=== PATIENT | male | born 1955 | race Caucasian/White ===

== ENCOUNTER 2017-04-02 08:09 | Emergency (ER) | payer BC ==
--- NOTE | 2017-04-02 08:42 | EDM.PDOC ---
ED HPI GENERAL MEDICAL PROBLEM - General Chief Complaint: Trauma Stated Complaint: FELL, MULTIPLE INJURIES Time Seen by Provider: 04/02/17 08:32 Source of Information: Reports: Patient History Limitations: Reports: No Limitations - History of Present Illness INITIAL COMMENTS - FREE TEXT/NARRATIVE: The patient was out walking and he tripped and fell and landed on his knees and hands and he may have hit his head. He had no LOC. He has no headache at this time. He has some neck pain. He has right and left knee pain and some pain in his right hand. He has a mechanical heart valve and his on coumadin. He has a history of fall a few years ago and a head bleed. He has no chest pain, shortness of breath or abdominal pain. Onset: Sudden Duration: Hour(s): Location: Reports: Neck, Upper Extremity, Right (hand), Lower Extremity, Left ( knee), Lower Extremity, Right (knee) Quality: Reports: Sharp Severity: Moderate Improves with: Reports: None Worsens with: Reports: None Context: Reports: Trauma (Fall) Associated Symptoms: Reports: No Other Symptoms Right Hand Pain Score (Numeric/FACES): 8 Bilateral Knee Pain Score (Numeric/FACES): 7 - Related Data Allergies Allergy/AdvReac Type Severity Reaction Status Date / Time No Known Allergies Allergy Verified 04/02/17 08:16 Home Meds: Home Meds Aspirin [Halfprin] 81 mg PO DAILY 03/19/14 [History] Omeprazole 20 mg PO DAILY 03/19/14 [History] Rosuvastatin [Crestor] 5 mg PO DAILY 03/19/14 [History] Warfarin [Coumadin] 10 mg PO DAILY 03/19/14 [History] Warfarin [Coumadin] 15 mg PO ASDIRECTED 04/02/17 [History] Social & Family History - Tobacco Use Smoking Status *Q: Never Smoker - Alcohol Use Days Per Week of Alcohol Use: 0 Number of Drinks Per Day: 0 Total Drinks Per Week: 0 - Recreational Drug Use Recreational Drug Use: No Drug Use in Last 12 Months: No Review of Systems - Review of Systems Review Of Systems: See Below Constitutional: Reports: No Symptoms Eyes: Reports: No Symptoms Ears: Reports: No Symptoms Nose: Reports: No Symptoms Mouth/Throat: Reports: No Symptoms Respiratory: Reports: No Symptoms Cardiovascular: Reports: No Symptoms GI/Abdominal: Reports: No Symptoms Genitourinary: Reports: No Symptoms Musculoskeletal: Reports: Neck Pain, Other (Right and left knee pain and right hand pain.) ED EXAM, GENERAL - Physical Exam Exam: See Below Exam Limited By: No Limitations General Appearance: Alert, No Apparent Distress Ears: Normal External Exam Nose: Normal Inspection Head: Atraumatic, Normocephalic Neck: Other (mid lateral neck pain) Respiratory/Chest: No Respiratory Distress, Lungs Clear, Normal Breath Sounds Cardiovascular: Regular Rate, Rhythm, No Edema, No Murmur GI/Abdominal: Soft, Non-Tender, No Organomegaly, No Mass Back Exam: Normal Inspection Extremities: Other (Pain upon palpation with mild edema and small abrasion to both knees. Pain upon palpation to the right hand with mild edema and an abrasion) Neurological: Alert, Oriented, No Motor/Sensory Deficits Course - Vital Signs Last Recorded V/S: Last Vital Signs Temp 97.8 F 04/02/17 08:16 Pulse 69 04/02/17 08:16 Resp 16 04/02/17 08:16 BP 130/73 04/02/17 08:16 Pulse Ox 95 04/02/17 08:16 - Orders/Labs/Meds Orders: Active Orders 24 hr Category Date Time Status Vaccines to be Administered [RC] PER UNIT ROUTINE Care 04/02/17 09:01 Active Hand Comp Min 3V Rt [CR] Stat Exams 04/02/17 08:33 Taken Labs: Laboratory Tests 04/02/17 Range/Units 09:06 PT 32.5 H (8.0-13.0) SECONDS INR 2.79 Meds: Medications Discontinued Medications Generic Name Dose Route Start Last Admin Trade Name Doug PRN Reason Stop Dose Admin Diphtheria/Tetanus/Acell Pertussis 0.5 ml 04/02/17 09:01 04/02/17 09:12 Boostrix IM 04/02/17 09:02 0.5 ml .ONCE ONE Administration - Re-Assessments/Exams Free Text/Narrative Re-Assessment/Exam: 04/02/17 08:43 I will get an x-ray of his right hand and both knees, CT of his head and neck and an INR. 04/02/17 10:[address] of his head and neck shows nothing acute. His right hand looks good. He did not want his knees x-rayed. His INR was therapeutic at 2.79. Departure - Departure Time of Disposition: 10:05 Disposition: Home, Self-Care 01 Condition: good Clinical Impression: Fall Qualifiers: Encounter type: initial encounter Qualified Code(s): W19.XXXA - Unspecified fall, initial encounter Contusion of right knee Qualifiers: Encounter type: initial encounter Qualified Code(s): S80.01XA - Contusion of right knee, initial encounter Contusion of left knee Qualifiers: Encounter type: initial encounter Qualified Code(s): S80.02XA - Contusion of left knee, initial encounter Cervical strain Qualifiers: Encounter type: initial encounter Qualified Code(s): S16.1XXA - Strain of muscle, fascia and tendon at neck level, initial encounter Contusion of right hand Qualifiers: Encounter type: initial encounter Qualified Code(s): S60.221A - Contusion of right hand, initial encounter Abrasion of right ring finger Qualifiers: Encounter type: initial encounter Qualified Code(s): S60.414A - Abrasion of right ring finger, initial encounter - Discharge Information Referrals: Fide Carrera PA [Primary Care Provider] - Forms: ED Department Discharge Additional Instructions: Ice the areas that hurt a few times per day. Take tylenol or motrin for pain. Please return if you are worse. - My Orders Last 24 Hours: My Active Orders 04/02/17 08:33 Hand Comp Min 3V Rt [CR] Stat 04/02/17 09:01 Vaccines to be Administered [RC] PER UNIT ROUTINE - Assessment/Plan Last 24 Hours: My Active Orders 04/02/17 08:33 Hand Comp Min 3V Rt [CR] Stat 04/02/17 09:01 Vaccines to be Administered [RC] PER UNIT ROUTINE
[2017-04-02] MEDS ORDERED: Diphtheria,Pertussis(Acell),Tetanus Vaccine 0.5 ML SDV inactive IM ONE (09:01)
--- NOTE | 2017-04-02 09:46 | CT ---
Head CT Technique: Multiple axial sections through the brain were obtained. Intravenous contrast was not utilized. Comparison: Previous head CT exam of 04/18/15. Findings: Ventricles along with basal cisterns and sulci over the convexities are mildly prominent. No abnormal parenchymal densities are seen. No evidence of intracranial hemorrhage. No midline shift or mass effect is seen. Incidental basal ganglia calcification is seen. Bone window settings were reviewed which shows a small retention cyst within the left maxillary sinus. Minimal areas of mucosal thickening are seen within the ethmoid and right maxillary sinus. No acute calvarial abnormality is seen. Impression: 1. Minimal sinus findings which are felt to be incidental and chronic. 2. No acute intracranial abnormality is identified on noncontrast head CT study. Diagnostic code #2
--- NOTE | 2017-04-02 09:51 | CT ---
CT cervical spine Technique: Multiple axial sections of the cervical spine were obtained from above C1 inferiorly to the bottom of T1. Reconstructed sagittal and coronal images were reviewed. Comparison: Previous MRI cervical spine study of 04/25/15 is available. Findings: Mild degenerative change is noted between the dens and the anterior arch of C1. Moderate to severe disc space narrowing is noted at C5-6 and C6-7. Scattered anterior endplate osteophytes are seen. Degenerative spurring is noted within the uncovertebral joints most prominent at C5-6 on the right side. Other lesser scattered degenerative change seen within the uncovertebral joints. Vertebral body heights are maintained. Posterior skull base is intact. Scattered degenerative apophyseal change is seen. Vertebral bodies and posterior arches are intact. No fracture is seen. Minimal right sided neural foraminal stenosis noted at C6-7. Mild right-sided neural foraminal stenosis noted at C5-6. Other neural foramina are patent. No abnormal subluxation is seen. Impression: 1. Moderate diffuse degenerative change. 2. No acute fracture or abnormal subluxation is seen on CT study of the cervical spine. Diagnostic code #2
[2017-04-02 11:14] VITALS: BP 124/85
--- NOTE | 2017-04-02 12:56 | CR ---
Right hand: Four views of the right hand were obtained. Comparison: No previous hand study. Slight vascular calcification is seen within the wrist. Slight joint space narrowing is scattered within the DIP and PIP joints. No fracture, dislocation or other bony abnormality is seen. Impression: 1. Incidental findings. Nothing acute is appreciated on right hand exam. Diagnostic code #2
== END 2017-04-02 10:30 | disposition home or self-care (01) ==
LOC: JD.ED 08:09
DX: S16.1XXA Strain of muscle, fascia and tendon at neck level, initial encounter (principal); S80.01XA Contusion of right knee, initial encounter; S80.02XA Contusion of left knee, initial encounter; S60.221A Contusion of right hand, initial encounter; S60.414A Abrasion of right ring finger, initial encounter; Z23 Encounter for immunization; Z79.82 Long term (current) use of aspirin; Z79.01 Long term (current) use of anticoagulants; Z79.899 Other long term (current) drug therapy; W01.0XXA Fall on same level from slipping, tripping and stumbling without subsequent striking against object, initial encounter
CPT/HCPCS: 36415; 70450; 70450-26; 72125; 72125-26; 73130-26-RT; 73130-RT; 85610; 90471; 90715; 99284; 99284-25

== ENCOUNTER 2020-06-11 17:20 | Emergency (ER) | payer SELFPAY ==
[2020-06-11 17:28] VITALS: BP 171/85; PULSE 65
[2020-06-11] MEDS ORDERED: Sodium Chloride 0.9% 10 ML Syringe FLUSH PRN (17:32)
[2020-06-11] MEDS ORDERED: Acetaminophen 325 MG Tab PO ONE (17:33)
[2020-06-11] MEDS ORDERED: Ketorolac 30 MG/ML SDV IVPUSH SCH (17:45)
[2020-06-11] MEDS ORDERED: Sodium Chloride 0.9% 1,000 ML IV SCH (17:45)
--- NOTE | 2020-06-11 17:55 | CT ---
Head CT Technique: Multiple axial sections through the brain were obtained. Intravenous contrast was not utilized. Comparison: Prior head CT study of 08/16/18. Findings: Ventricles along with basal cisterns and sulci over the convexities are mildly prominent. Minimal basal ganglia calcification is seen which is stable. No abnormal parenchymal densities are seen. No evidence of intracranial hemorrhage. No midline shift or mass-effect is appreciated. Bone window settings were reviewed which show scattered mucosal thickening within the ethmoid and maxillary sinuses. No air-fluid levels are seen within the paranasal sinuses. Mastoid sinuses that are seen appear clear. No acute calvarial finding is seen. Impression: 1. Sinus findings believed to be pre-existing and chronic. 2. Minimal generalized atrophy. 3. No acute intracranial abnormality is appreciated. Diagnostic code #2 This report was dictated in [facility]
[2020-06-11] MEDS ORDERED: methylPREDNISolone Sodium Succinate 125 MG/2 ML SDV IVPUSH ONE (18:58)
[2020-06-11] MEDS ORDERED: HYDROmorphone 0.5 MG/0.5 ML Syringe IVPUSH ONE (18:58)
--- NOTE | 2020-06-11 19:07 | EDM.PDOC ---
ED HPI GENERAL MEDICAL PROBLEM - General Chief Complaint: Neuro Symptoms/Deficits Stated Complaint: [facility] Time Seen by Provider: 06/11/20 17:22 Source of Information: Reports: Patient, RN Notes Reviewed - History of Present Illness INITIAL COMMENTS - FREE TEXT/NARRATIVE: 65 yr old male brought to ED by ambulance with R low back pain radiating to RLE. He started having mild discomfort earlier in the day golfing. The pain became worse later afternoon and he was hit with severe pain bending over operating a skill saw cutting a board. He states the leg "gave out". Brought n by EMS. Giovanna fletcher called stroke alert with hx of "leg giving out". However hx is as above, no hx of a focal paralysis prior to arrival or upon arrival to ED. No Aranda. No focal weakness. No speech difficulty or facial droop. No hx of neuro problems. - Related Data Allergies Allergy/AdvReac Type Severity Reaction Status Date / Time No Known Allergies Allergy Verified 04/02/17 08:16 Home Meds: Home Meds Aspirin [Halfprin] 81 mg PO DAILY 03/19/14 [History] Omeprazole 20 mg PO DAILY 03/19/14 [History] Rosuvastatin [Crestor] 5 mg PO DAILY 03/19/14 [History] Warfarin [Coumadin] 10 - 11 mg PO DAILY 03/19/14 [History] Acetaminophen/HYDROcodone [Castella 325-5 MG] 1 tab PO Q4H PRN #20 tablet 06/11/20 [Rx] predniSONE [Prednisone] 50 mg PO DAILY #7 tablet 06/11/20 [Rx] Past Medical History HEENT History: Reports: Impaired Vision Cardiovascular History: Reports: Heart Valve Replacement Respiratory History: Reports: None Genitourinary History: Reports: None Musculoskeletal History: Reports: Fracture Neurological History: Reports: Other (See Below) 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 Psychiatric History: Reports: None Endocrine/Metabolic History: Reports: Obesity/BMI 30+ Hematologic History: Reports: Anticoagulation Therapy Immunologic History: Reports: None Oncologic (Cancer) History: Reports: None Dermatologic History: Reports: None - Infectious Disease History Infectious Disease History: Reports: None - Past Surgical History Cardiovascular Surgical History: Reports: Valve Replacement, Other (See Below) Other Cardiovascular Surgeries/Procedures: Mitral Valve Replacement GI Surgical History: Reports: Colonoscopy, EGD Social & Family History - Tobacco Use Smoking Status *Q: Never Smoker - Caffeine Use Caffeine Use: Reports: Coffee - Recreational Drug Use Recreational Drug Use: No ED ROS GENERAL - Review of Systems Review Of Systems: See Below Constitutional: Denies: Fever, Chills, Diaphoresis HEENT: Reports: No Symptoms Respiratory: Denies: Shortness of Breath, Cough Cardiovascular: Denies: Chest Pain GI/Abdominal: Denies: Abdominal Pain, Nausea, Vomiting Musculoskeletal: Reports: Back Pain, Leg Pain. Denies: Shoulder Pain, Arm Pain Skin: Denies: Rash Neurological: Denies: Dizziness, Headache, Numbness, Tingling, Weakness ED EXAM, NEURO - Physical Exam Exam: See Below General Appearance: Alert, Moderate Distress Eye Exam: Bilateral Eye: PERRL, Other (EOM nl) Throat/Mouth: Normal Inspection, Other (no facial droop) Head Exam: Atraumatic. No: Facial Swelling Respiratory/Chest: No Respiratory Distress, Lungs Clear Cardiovascular: Regular Rate, Rhythm Neurological: Alert, No Motor/Sensory Deficits, Oriented x 3, Straight Leg Raise (R) Back Exam: Other (mild tenderness R low back). No: CVA Tenderness (L), CVA Tenderness (R) Extremities: No: Pedal Edema, Increased Warmth, Redness Psychiatric: Normal Affect, Normal Mood Skin Exam: Warm, Dry, Normal Color, No Rash EKG INTERPRETATION EKG Date: 06/11/20 Rhythm: NSR [place]: Normal P-Wave: Present QRS: Normal ST-T: Normal Course - Vital Signs Last Recorded V/S: Last Vital Signs Temp 97.6 F 06/11/20 17:22 Pulse 65 06/11/20 17:22 Resp 16 06/11/20 17:22 BP 171/85 H 06/11/20 17:22 Pulse Ox 94 L 06/11/20 17:22 - Orders/Labs/Meds Labs: Laboratory Tests 06/11/20 Range/Units 17:25 POC Glucose 82 (80-115) mg/dL Meds: Medications Discontinued Medications Generic Name Dose Route Start Last Admin Trade Name Trentonq PRN Reason Stop Dose Admin Acetaminophen 975 mg 06/11/20 17:33 06/11/20 18:04 Tylenol PO 06/11/20 17:34 975 mg NOW ONE Administration Hydromorphone HCl 0.5 mg 06/11/20 18:58 06/11/20 19:04 Dilaudid IVPUSH 06/11/20 18:59 0.5 mg ONETIME ONE Administration Sodium Chloride 1,000 mls @ 999 mls/hr 06/11/20 17:45 06/11/20 18:05 Normal Saline IV 999 mls/hr ONETIME MADDISON Administration Ketorolac Tromethamine 30 mg 06/11/20 17:45 06/11/20 18:04 Toradol IVPUSH 30 mg ONETIME MADDISON Administration Methylprednisolone Sodium Succinate 125 mg 06/11/20 18:58 06/11/20 19:06 Solu-Medrol IVPUSH 06/11/20 18:59 125 mg ONETIME ONE Administration Sodium Chloride 10 ml 06/11/20 17:32 06/11/20 18:04 Saline Flush FLUSH 10 ml ASDIRECTED PRN Administration Keep Vein Open - Re-Assessments/Exams Free Text/Narrative Re-Assessment/Exam: 06/11/20 19:07 This was called as a stroke alert but this was and is not a stroke. He has sciatica. His R leg gave out on him while bending over cutting a board with and electric skill saw. Head CT was done precautionary and shows no acute findings. He has no focal weakness. He has sx and findings that verify sciatica. Departure - Departure Time of Disposition: 19:04 Disposition: Home, Self-Care 01 Condition: Fair Clinical Impression: Sciatica Qualifiers: Laterality: right Qualified Code(s): M54.31 - Sciatica, right side - Discharge Information Prescriptions: Acetaminophen/HYDROcodone [Castella 325-5 MG] 1 tab PO Q4H PRN #20 tablet PRN Reason: Pain predniSONE [Prednisone] 50 mg PO DAILY #7 tablet Instructions: Sciatica Referrals: Justo Mccall PA-C [Primary Care Provider] - Forms: ED Department Discharge Additional Instructions: Rest back, no heavy lifting. Prednisone 50 mg q AM for the next 7 days. Tylenol 2 to 3 times daily if needed for mild pain or hydrocodone if needed for severe pain. Prescriptions have been sent to [facility] up at the [place]. Do not drive when taking hydrocodone. Follow up with Justo at the clinic early next week if not much better within 4 to 5 days. Return to ED as needed. Sepsis Event Note (ED) - Evaluation Sepsis Screening Result: No Definite Risk
== END 2020-06-11 20:00 | disposition home or self-care (01) ==
LOC: JD.ED 17:20
DX: M54.41 Lumbago with sciatica, right side (principal); E66.9 Obesity, unspecified; Z79.82 Long term (current) use of aspirin; Z79.01 Long term (current) use of anticoagulants; Z79.899 Other long term (current) drug therapy
CPT/HCPCS: 70450; 82962; 93005; 96374; 96375; 99284; A9270; J1170; J1885; J2930; J7030; 93010; 99283

== ENCOUNTER 2025-07-22 17:18 | Emergency (ER) | payer MEDICARE, OTHER ==
[2025-07-22 19:52] VITALS: BP 136/72; PULSE 56
== END 2025-07-22 18:30 | disposition home or self-care (01) ==
LOC: JD.ED 17:18
DX: S00.01XA Abrasion of scalp, initial encounter (principal); E66.9 Obesity, unspecified; Z79.899 Other long term (current) drug therapy; Z79.82 Long term (current) use of aspirin; Z79.01 Long term (current) use of anticoagulants; W22.8XXA Striking against or struck by other objects, initial encounter
CPT/HCPCS: 70450; 70450-26; 99283